=== PATIENT | male | born 1935 | race Caucasian/White ===

== ENCOUNTER 2016-03-17 20:02 | Inpatient (IN) | payer MEDICARE, OTHER ==
[~2016-03-17] VITALS: Ht 170.2 cm; Wt 98.0 kg
[2016-03-18] VITALS (9 sets, daily range): BP systolic 122–150; RESP 16–24; TEMP 97.7–99.8; Ht 170.2 cm; Wt 98.0 kg
[2016-03-18] MEDS ORDERED: SODIUM CHLORIDE 0.9% 100 ML IV ONE (00:58)
[2016-03-18] MEDS ORDERED: CEFTRIAXONE 1 GM VIAL ONE (00:58)
[2016-03-18] MEDS ORDERED: SODIUM CHLORIDE 0.9% 2,000 ML ONE (00:59)
[2016-03-18] MEDS ORDERED: AZITHROMYCIN 500 MG VIAL IV ONE (01:48)
[2016-03-18] MEDS ORDERED: SODIUM CHLORIDE 0.9% 250 ML IV ONE (01:48)
[2016-03-18] MEDS ORDERED: SALINE FLUSH 10 ML FLUSH PRN (04:30)
[2016-03-18] MEDS ORDERED: BISACODYL EC 5 MG TAB PO PRN (04:30)
[2016-03-18] MEDS ORDERED: BISACODYL 10 MG SUPP RECTAL PRN (04:30)
[2016-03-18] MEDS ORDERED: MAG HYDROX 30 ML UDC PO PRN (04:30)
[2016-03-18] MEDS ORDERED: ONDANSETRON 4 MG VIAL IV PRN (04:30)
[2016-03-18] MEDS ORDERED: ALU/MAG/SIM 30 ML UDC PO PRN (04:30)
[2016-03-18] MEDS ORDERED: SODIUM CHLORIDE 0.9% 1,000 ML IV SCH ×2 (04:35→09:20)
[2016-03-18] MEDS ORDERED: NEB-ALBUTEROL 2.5 MG/3 ML INH PRN (04:45)
[2016-03-18] MEDS: SODIUM CHLORIDE 0.9% FLUSH BAG 500 ML IV SCH (05:44)
[2016-03-18] MEDS: ACETAMINOPHEN 325 MG TAB PO PRN ×2 (07:35→16:15)
[2016-03-18] MEDS ORDERED: GLUCAGON 1 MG VIAL IM PRN (07:45)
[2016-03-18] MEDS ORDERED: DEXTROSE 50% SYRINGE 50 ML IV PRN (07:45)
[2016-03-18] MEDS: LEVOFLOXACIN 750 MG/150 ML 150 ML IV SCH (08:27)
[2016-03-18] MEDS: ENOXAPARIN 30 MG/0.3 ML SYR SUBQ SCH (08:33)
[2016-03-18] MEDS: SALINE FLUSH 10 ML FLUSH SCH ×2 (08:34→20:00)
[2016-03-18] MEDS: DUONEB INH SCH ×3 (09:20→19:58)
[2016-03-18] MEDS: TAMSULOSIN 0.4 MG CAP PO SCH (09:39)
[2016-03-18] MEDS: FOLIC ACID 1 MG TAB PO SCH (09:39)
[2016-03-18] MEDS: ASPIRIN 81 MG CHEW TAB PO SCH (09:39)
[2016-03-18] MEDS: MIRTAZAPINE 15 MG TAB PO SCH (09:40)
[2016-03-18] MEDS: LISINOPRIL 10 MG TAB PO SCH (09:40)
[2016-03-18] MEDS: GUAIFENESIN ER 600 MG TABCR PO SCH ×2 (10:20→20:13)
[2016-03-18] MEDS: BUSPIRONE HCL 5 MG TAB PO SCH (20:11)
[2016-03-18] MEDS: GABAPENTIN 300 MG CAP PO SCH (20:12)
[2016-03-19] VITALS (8 sets, daily range): BP systolic 126–152; RESP 20–22; TEMP 97.4–98.5
[2016-03-19] MEDS: SODIUM CHLORIDE 0.9% FLUSH BAG 500 ML IV SCH (04:47)
[2016-03-19] MEDS: DUONEB INH SCH ×3 (07:18→20:28)
[2016-03-19] MEDS: SALINE FLUSH 10 ML FLUSH SCH ×2 (08:00→20:49)
[2016-03-19] MEDS: FOLIC ACID 1 MG TAB PO SCH (08:25)
[2016-03-19] MEDS: ASPIRIN 81 MG CHEW TAB PO SCH (08:25)
[2016-03-19] MEDS: GUAIFENESIN ER 600 MG TABCR PO SCH ×2 (08:25→20:49)
[2016-03-19] MEDS: TAMSULOSIN 0.4 MG CAP PO SCH (08:25)
[2016-03-19] MEDS: LISINOPRIL 10 MG TAB PO SCH (08:25)
[2016-03-19] MEDS: LEVOFLOXACIN 750 MG/150 ML 150 ML IV SCH (08:25)
[2016-03-19] MEDS: MIRTAZAPINE 15 MG TAB PO SCH (08:26)
[2016-03-19] MEDS: ENOXAPARIN 30 MG/0.3 ML SYR SUBQ SCH (08:26)
[2016-03-19] MEDS ORDERED: BENZONATATE 100 MG CAP PO PRN (12:30)
[2016-03-19] MEDS: GABAPENTIN 300 MG CAP PO SCH (20:49)
[2016-03-19] MEDS: BUSPIRONE HCL 5 MG TAB PO SCH (20:49)
[2016-03-20] VITALS (7 sets, daily range): BP systolic 132–142; RESP 18–20; TEMP 98.1–99
[2016-03-20] MEDS ORDERED: MISSING DOSE XX ONE (04:25)
[2016-03-20] MEDS: SODIUM CHLORIDE 0.9% FLUSH BAG 500 ML IV SCH (06:04)
[2016-03-20] MEDS: DUONEB INH SCH ×3 (07:02→19:43)
[2016-03-20] MEDS: SALINE FLUSH 10 ML FLUSH SCH ×2 (09:00→21:56)
[2016-03-20] MEDS: ASPIRIN 81 MG CHEW TAB PO SCH (09:01)
[2016-03-20] MEDS: LEVOFLOXACIN 750 MG/150 ML 150 ML IV SCH (09:01)
[2016-03-20] MEDS: MIRTAZAPINE 15 MG TAB PO SCH (09:01)
[2016-03-20] MEDS: FOLIC ACID 1 MG TAB PO SCH (09:01)
[2016-03-20] MEDS: LISINOPRIL 10 MG TAB PO SCH (09:01)
[2016-03-20] MEDS: TAMSULOSIN 0.4 MG CAP PO SCH (09:01)
[2016-03-20] MEDS: GUAIFENESIN ER 600 MG TABCR PO SCH ×2 (09:01→21:56)
[2016-03-20] MEDS: ENOXAPARIN 30 MG/0.3 ML SYR SUBQ SCH (09:02)
[2016-03-20] MEDS: BUSPIRONE HCL 5 MG TAB PO SCH (21:56)
[2016-03-20] MEDS: GABAPENTIN 300 MG CAP PO SCH (21:56)
[2016-03-21] VITALS (7 sets, daily range): BP systolic 104–134; RESP 16–20; TEMP 97.5–99.2
[2016-03-21] MEDS: SODIUM CHLORIDE 0.9% FLUSH BAG 500 ML IV SCH (06:09)
[2016-03-21] MEDS: DUONEB INH SCH ×3 (06:30→18:13)
[2016-03-21] MEDS: SALINE FLUSH 10 ML FLUSH SCH ×2 (09:17→20:10)
[2016-03-21] MEDS: GUAIFENESIN ER 600 MG TABCR PO SCH ×2 (09:18→20:10)
[2016-03-21] MEDS: FOLIC ACID 1 MG TAB PO SCH (09:18)
[2016-03-21] MEDS: TAMSULOSIN 0.4 MG CAP PO SCH (09:18)
[2016-03-21] MEDS: ASPIRIN 81 MG CHEW TAB PO SCH (09:18)
[2016-03-21] MEDS: LEVOFLOXACIN 750 MG/150 ML 150 ML IV SCH (09:18)
[2016-03-21] MEDS: LISINOPRIL 10 MG TAB PO SCH (09:18)
[2016-03-21] MEDS: MIRTAZAPINE 15 MG TAB PO SCH (09:18)
[2016-03-21] MEDS: ENOXAPARIN 30 MG/0.3 ML SYR SUBQ SCH (09:19)
[2016-03-21] MEDS: GABAPENTIN 300 MG CAP PO SCH (20:10)
[2016-03-21] MEDS: BUSPIRONE HCL 5 MG TAB PO SCH (20:10)
[2016-03-22 02:54] VITALS: BP_SYST 94; RESP 16; TEMP 98.3
[2016-03-22] MEDS: SODIUM CHLORIDE 0.9% FLUSH BAG 500 ML IV SCH (05:19)
[2016-03-22] MEDS: DUONEB INH SCH ×2 (07:09→11:32)
[2016-03-22 07:39] VITALS: BP_SYST 114; RESP 18; TEMP 98.1
[2016-03-22] MEDS: TAMSULOSIN 0.4 MG CAP PO SCH (08:01)
[2016-03-22] MEDS: MIRTAZAPINE 15 MG TAB PO SCH (08:01)
[2016-03-22] MEDS: LISINOPRIL 10 MG TAB PO SCH (08:01)
[2016-03-22] MEDS: SALINE FLUSH 10 ML FLUSH SCH (08:01)
[2016-03-22] MEDS: LEVOFLOXACIN 750 MG/150 ML 150 ML IV SCH (08:01)
[2016-03-22] MEDS: GUAIFENESIN ER 600 MG TABCR PO SCH (08:01)
[2016-03-22] MEDS: FOLIC ACID 1 MG TAB PO SCH (08:02)
[2016-03-22] MEDS: ASPIRIN 81 MG CHEW TAB PO SCH (08:02)
[2016-03-22] MEDS: ENOXAPARIN 30 MG/0.3 ML SYR SUBQ SCH (08:02)
[2016-03-22 11:22] VITALS: BP_SYST 121; RESP 18; TEMP 97.5
[2016-03-22 13:46] VITALS: BP_SYST 124; TEMP 98.8
[2016-03-22 13:47] VITALS: RESP 18
[2016-03-22 13:48] VITALS: BP_SYST 124; RESP 18; TEMP 98.8
== END 2016-03-22 14:20 | disposition home health service (06) | DRG 194 ==
LOC: ENRESERVTM → ENRESERVDT → ER 20:02 → EMR 20:03 → 3NT 03-18 02:51 → ENPENDDIS 03-18 13:35 → OBSVTOIN 03-18 13:35
PROVIDERS: ADMIT Family Medicine Addiction Medicine; ATTEND Family Medicine Addiction Medicine
DX: J14 Pneumonia due to Hemophilus influenzae (principal); J44.0 Chronic obstructive pulmonary disease with (acute) lower respiratory infection; E11.9 Type 2 diabetes mellitus without complications; E86.0 Dehydration; K21.9 Gastro-esophageal reflux disease without esophagitis; I35.0 Nonrheumatic aortic (valve) stenosis; Z95.2 Presence of prosthetic heart valve; M19.90 Unspecified osteoarthritis, unspecified site; F32.9 Major depressive disorder, single episode, unspecified; E78.00 Pure hypercholesterolemia, unspecified; Z95.0 Presence of cardiac pacemaker; R09.02 Hypoxemia; N40.0 Benign prostatic hyperplasia without lower urinary tract symptoms; Z79.82 Long term (current) use of aspirin; Z79.84 Long term (current) use of oral hypoglycemic drugs
CPT/HCPCS: 36415; 71020; 80048; 80053; 81001; 82553; 82947; 83036; 83605; 83880; 84484; 85025; 87040; 87071; 87077; 87088; 87205; 87278; 87299; 87804; 93005; 94640; 94799; 96365; 96375; 99220; 99233; 99239